=== PATIENT | female | born 1935 | race Caucasian/White ===

== ENCOUNTER 2016-10-31 03:31 | Emergency (ER) | payer OTHER ==
[~2016-10-31] VITALS: Ht 157.5 cm; Wt 70.0 kg
[~2016-10-31 03:31] MED LIST: ALPRAZOLAM0.25 M2 PO; AMLODIPINE BESYL5 MG PO; ASPIR-LOW81 MG PO; CAL-CITRATE PL1 EACH PO; CALCIUM 500 MG1 EACH PO; EFFEXOR75 MG PO; ENDOCET 5-3251 EACH PO; HYDROCHLOROTH12.5 M3 PO; LOSARTAN POTAS100 MG PO; LOVASTATIN10 MG PO; MULTIPLE VITAM1 EACH PO; SYNTHROID75 MCG PO
[2016-10-31] MEDS ORDERED: LIDOCAINE700 MG TD (04:59)
[2016-10-31] MEDS ORDERED: ZANAFLEX2 MG PO (04:59)
[2016-10-31 05:41] VITALS: BP 112/56
== END 2016-10-31 05:42 | disposition home or self-care (01) ==
LOC: EME → EDBD 03:31 → EME 05:42
DX: S16.1XXA Strain of muscle, fascia and tendon at neck level, initial encounter (principal); R11.0 Nausea; I10 Essential (primary) hypertension; Z87.891 Personal history of nicotine dependence
CPT/HCPCS: 99281; 99284

== ENCOUNTER 2017-07-29 08:27 | Day surgery (SDC) | payer OTHER ==
[~2017-07-29] VITALS: Ht 157.5 cm; Wt 66.7 kg
[~2017-07-29 08:27] MED LIST changes: +ACID REDUCER 1150 MG PO; +COZAAR50 MG PO; +EFFEXOR37.5 MG PO; -EFFEXOR75 MG PO; +INDOCIN50 MG PO; +LIDOCAINE700 MG TD; +LO-DOSE ASPIRIN81 M1 PO; -LOSARTAN POTAS100 MG PO; +PATADAY2.5 ML BOTH EYES; +ZANAFLEX2 MG PO
== END 2017-07-29 09:50 | disposition home or self-care (01) ==
LOC: PAIN 08:27
DX: M54.12 Radiculopathy, cervical region (principal); M50.123 Cervical disc disorder at C6-C7 level with radiculopathy; Z87.891 Personal history of nicotine dependence; K21.9 Gastro-esophageal reflux disease without esophagitis; F41.1 Generalized anxiety disorder; E78.5 Hyperlipidemia, unspecified; I10 Essential (primary) hypertension; E03.9 Hypothyroidism, unspecified; R73.03 Prediabetes; Z88.8 Allergy status to other drugs, medicaments and biological substances
CPT/HCPCS: J1100; J2250; J3010

== ENCOUNTER 2017-09-02 08:40 | Day surgery (SDC) | payer OTHER ==
[~2017-09-02] VITALS: Ht 157.5 cm; Wt 64.4 kg
[~2017-09-02 08:40] MED LIST changes: +CRANBERRY300 MG PO; +OSTEO BI-FLEX1 EAC2 PO; +REFRESH EYE DR1 EACH BOTH EYES; +RESTASIS MULTI5.5 ML BOTH EYES
== END 2017-09-02 10:17 | disposition home or self-care (01) ==
LOC: PAIN 08:40
DX: M54.12 Radiculopathy, cervical region (principal); E03.9 Hypothyroidism, unspecified; I10 Essential (primary) hypertension; E78.5 Hyperlipidemia, unspecified; K21.9 Gastro-esophageal reflux disease without esophagitis; Z88.8 Allergy status to other drugs, medicaments and biological substances
CPT/HCPCS: J1100; J2250; J3010

== ENCOUNTER 2018-01-01 09:07 | Day surgery (SDC) | payer OTHER ==
[~2018-01-01] VITALS: Ht 157.5 cm; Wt 65.2 kg
[~2018-01-01 09:07] MED LIST changes: +MEVACOR10 M1 PO; +NORCO 5/3251 TABLET PO; +VITAMIN D2000 UNIT PO
== END 2018-01-01 10:40 | disposition home or self-care (01) ==
LOC: PAIN 09:07 → SDC 09:30 → PAIN 10:40
DX: M70.72 Other bursitis of hip, left hip (principal); M25.552 Pain in left hip; I10 Essential (primary) hypertension; E78.5 Hyperlipidemia, unspecified; K21.9 Gastro-esophageal reflux disease without esophagitis; E03.9 Hypothyroidism, unspecified; R73.01 Impaired fasting glucose; M19.90 Unspecified osteoarthritis, unspecified site; F32.9 Major depressive disorder, single episode, unspecified; F41.9 Anxiety disorder, unspecified; Z98.1 Arthrodesis status; Z87.891 Personal history of nicotine dependence; Z88.8 Allergy status to other drugs, medicaments and biological substances
CPT/HCPCS: J1030; S0020